=== PATIENT | male | born 1955 | race Caucasian/White ===

== ENCOUNTER → 2019-02-19 | Outpatient (CLI) | payer MEDICARE, OTHER ==
--- NOTE | 2019-02-20 12:37 | US ---
EXAM DESCRIPTION: Venous,Lower Extremity LT: ULTRASOUND. CLINICAL HISTORY: Pain in left lower leg COMPARISON: None Available. TECHNIQUE: Bo-scale and doppler sonographic evaluation of the deep venous system of the left lower extremity. FINDINGS: Doppler evaluation shows normal color flow and normal phasicity and augmentation of the left common femoral vein, femoral vein, popliteal vein, greater saphenous vein, peroneal, and posterior tibial vein. The left lower extremity deep veins were completely compressible; normal occlusion with transducer pressure. Bo-scale survey showed no echogenic thrombus within these veins. Complex hypoechoic soft tissue mass with minimal anechoic fluid, measuring 5.8 x 3.6 x 2.9 cm with minimal vascularity. IMPRESSION: 1. Duplex ultrasound evaluation of the left lower extremity deep venous system showing no evidence of thrombosis. 2. Complex Marniquez's cyst with possible hematoma component in the left popliteal fossa. Electronically signed by: Colton Martines MD 02/20/2019 12:34 PM CDT
== END ==
LOC: RAD 13:37
PROVIDERS: ATTEND Nurse Practitioner Family
DX: M71.22 Synovial cyst of popliteal space [Baker], left knee (principal)